=== PATIENT | female | born 1975 | race Caucasian/White ===

== ENCOUNTER 2016-04-16 17:51 | Emergency (ER) | payer OTHER | END 2016-04-16 17:55 | disposition home or self-care (01) | LOC: CFTX 17:51 | DX: H10.33 Unspecified acute conjunctivitis, bilateral (principal); F17.210 Nicotine dependence, cigarettes, uncomplicated; N80.9 Endometriosis, unspecified; Z98.51 Tubal ligation status | CPT/HCPCS: 99283 ==